=== PATIENT | male | born 1975 | race Caucasian/White ===

== ENCOUNTER 2019-05-09 09:46 | Emergency (ER) | payer SELFPAY ==
[~2019-05-09] VITALS: Ht 165.1 cm; Wt 81.6 kg
--- NOTE | 2019-05-09 10:07 | NUR ---
PT WAS EVALUATED BY DR MCCOY. PT's WOUND WAS CLEANED WITH NS 0.9% AND GAUZE PRESSURE DRESSING WAS APPLIED ACCORDING TO DR MCCOY ORDER. PT TOLERATED TO PROCEDURE WITHOUT COMPLICATIONS. NO BLEEDING. PT DECIDED TO LEAVE [facility] AMA. DR MCCOY EXPLAINED ALL RISKS OF LEAVING HOSPITAL AMA TO THE PT. PT WERBALIZED FULL UNDERSTANDING. PT SIGNED AMA FORM AND LEFT WITH HIS FRIEND BY CAR.
[2019-05-09 10:12] VITALS: BP 133/72
== END 2019-05-09 10:34 | disposition left against medical advice (07) ==
LOC: ER 09:46
DX: S51.812A Laceration without foreign body of left forearm, initial encounter (principal); W26.8XXA Contact with other sharp object(s), not elsewhere classified, initial encounter; Y93.89 Activity, other specified; Y92.89 Other specified places as the place of occurrence of the external cause; Y99.0 Civilian activity done for income or pay
CPT/HCPCS: A4217; A4663